=== PATIENT | male | born 1960 | race Caucasian/White ===

== ENCOUNTER 2018-07-17 08:30 | Emergency (ER) | payer BC ==
[~2018-07-17] VITALS: Ht 170.2 cm; Wt 75.0 kg
[~2018-07-17 08:30] MED LIST: ATENOLOL25 MG PO; BENICAR40 MG PO; NORVASC 5MG5 MG/TAB PO
[2018-07-17 08:37] VITALS: BP 148/93; TEMP 98.3
[2018-07-17] MEDS ORDERED: TENORMIN100 MG PO (08:43)
[2018-07-17] MEDS ORDERED: BENICAR HCT 251 TAB PO (08:44)
[2018-07-17] MEDS ORDERED: NORVASC 10MG10 MG PO (08:45)
[2018-07-17] MEDS ORDERED: ASPIRIN 32325 MG/TAB PO (08:45)
[2018-07-17 09:09] LABS: BASO # 0.1 (0.0-0.2); BASO % 0.8 % (0.0-2.0); EOS # 0.1 (0.0-0.7); EOS % 1.1 % (0-4.0); GRAN % 66.2 % (42.2-75.2); HEMATOCRIT 45.2 % (42.0-52.0); LYMPH # 1.5 (1.2-3.4); LYMPH % 20.5 % (20.0-51.0); MEAN CELL VOLUME 90 fl (80.0-100.0); MEAN CORPUSCULAR HEMOGLOBIN 32 pg (27.0-31.0); MEAN CORPUSCULAR HGB CONC 35 g/dl (33.0-37.0); MEAN PLATELET VOLUME 10.3 fl (7.4-10.4); MONO # 0.8 (0.1-0.6); MONO % 11.1 % (1.7-9.3); PLATELET COUNT 216 K/mm3 (130-400); RED BLOOD COUNT 5.02 M/mm3 (4.20-5.60); REDCELL DISTRIBUTION WIDTH-CV 12.3 % (11.5-14.5)
[2018-07-17 09:27] LABS: ALBUMIN 4.1 gm/dL (3.5-5.0); BILIRUBIN,TOTAL 0.7 mg/dL (0.0-1.0); C-REACTIVE PROTEIN 0.9 mg/dL (0.0-0.9); CALCIUM 9.4 mg/dL (8.4-10.2); CREATININE, serum 0.98 mg/dL (0.66-1.25); POTASSIUM 4.2 mmol/L (3.4-5.0); TOTAL PROTEIN 7.6 gm/dL (6.4-8.2); URIC ACID 8.9 mg/dL (3.5-8.5)
[2018-07-17] MEDS ORDERED: PREDNISONE20 MG PO (09:54)
[2018-07-17 10:22] VITALS: PULSE 64
== END 2018-07-17 10:22 | disposition home or self-care (01) ==
LOC: COL.ER 08:30
PROVIDERS: Nurse Practitioner
DX: M10.9 Gout, unspecified (principal); F17.290 Nicotine dependence, other tobacco product, uncomplicated; I10 Essential (primary) hypertension; Z98.890 Other specified postprocedural states

== ENCOUNTER 2020-05-26 07:15 | Emergency (ER) | payer BC ==
[~2020-05-26] VITALS: Ht 165.1 cm; Wt 75.0 kg
[~2020-05-26 07:15] MED LIST changes: +ASPIRIN 32325 MG/TAB PO; +BENICAR HCT 251 TAB PO; +NORVASC 10MG10 MG PO; +PREDNISONE20 MG PO; +TENORMIN100 MG PO
[2020-05-26 07:24] VITALS: TEMP 98.4
[2020-05-26] MEDS ORDERED: DIOVAN320 MG PO (07:28)
[2020-05-26] MEDS ORDERED: FLEXERIL 1010 MG/TAB PO (08:30)
[2020-05-26 08:37] VITALS: BP 161/108; PULSE 92
== END 2020-05-26 08:37 | disposition home or self-care (01) ==
LOC: COL.ER 07:15
DX: S06.0X0A Concussion without loss of consciousness, initial encounter (principal); S00.93XA Contusion of unspecified part of head, initial encounter; I10 Essential (primary) hypertension; F17.220 Nicotine dependence, chewing tobacco, uncomplicated; R40.2410 Glasgow coma scale score 13-15, unspecified time; Z79.82 Long term (current) use of aspirin; W01.198A Fall on same level from slipping, tripping and stumbling with subsequent striking against other object, initial encounter; Y92.830 Public park as the place of occurrence of the external cause

== ENCOUNTER 2020-12-26 08:05 | Emergency (ER) | payer OTHER ==
[~2020-12-26] VITALS: Ht 165.1 cm; Wt 72.7 kg
[~2020-12-26 08:05] MED LIST changes: +DIOVAN320 MG PO; +FLEXERIL 1010 MG/TAB PO
[2020-12-26 08:19] VITALS: TEMP 98.8
[2020-12-26 08:52] LABS: BASO # 0.1 (0.0-0.2); BASO % 1.4 % (0.0-2.0); EOS # 0.1 (0.0-0.7); EOS % 2.3 % (0-4.0); GRAN # 2.6 (1.4-6.5); GRAN % 59.7 % (42.2-75.2); HEMATOCRIT 46.6 % (42.0-52.0); HEMOGLOBIN 15.6 g/dl (13.5-18.0); LYMPH % 22.6 % (20.0-51.0); MEAN CELL VOLUME 92 fl (80.0-100.0); MEAN CORPUSCULAR HEMOGLOBIN 31 pg (27.0-31.0); MEAN CORPUSCULAR HGB CONC 34 g/dl (33.0-37.0); MEAN PLATELET VOLUME 10.6 fl (7.4-10.4); MONO # 0.6 (0.1-0.6); MONO % 13.5 % (1.7-9.3); PLATELET COUNT 195 K/mm3 (130-400); RED BLOOD COUNT 5.05 M/mm3 (4.20-5.60); REDCELL DISTRIBUTION WIDTH-CV 12.5 % (11.5-14.5)
[2020-12-26 08:57] LABS: COLLECTION METHOD CLEAN CATCH
[2020-12-26 09:05] LABS: ALANINE AMINOTRANSFERASE 35 U/L (4-49); ALBUMIN 4.7 gm/dL (3.5-5.0); ALKALINE PHOSPHATASE 77 U/L (50-136); ANION GAP 10 mmol/L (7-16); AST,SGOT 42 U/L (15-37); BILIRUBIN,TOTAL 0.8 mg/dL (0.0-1.0); BLOOD UREA NITROGEN 16 mg/dL (9-20); CALCIUM 9.4 mg/dL (8.4-10.2); CARBON DIOXIDE 25 mmol/L (22-30); CHLORIDE 100 mmol/L (98-107); CREATININE, serum 0.78 (0.66-1.25); GLUCOSE 105 mg/dL (74-106); POTASSIUM 4.5 mmol/L (3.4-5.0); SODIUM 135 mmol/L (137-145); TOTAL PROTEIN 7.9 gm/dL (6.4-8.2)
[2020-12-26 09:09] LABS: C-REACTIVE PROTEIN < 0.5 mg/dL (0.0-0.9)
[2020-12-26 10:12] LABS: URINE APPEARANCE Clear; URINE COLOR Yellow
[2020-12-26 10:13] LABS: MUCOUS Present /lpf; PH 5 (5-8); SQUAMOUS EPITHELIAL 0-2 /hpf; URINE BILIRUBIN Negative (NEGATIVE); URINE BLOOD Negative (NEGATIVE); URINE GLUCOSE Negative (NEGATIVE); URINE KETONE Trace (NEGATIVE); URINE LEUKOCYTE ESTERASE Negative (NEGATIVE); URINE NITRATE Negative (NEGATIVE); URINE PROTEIN(semi-quant) Negative (NEGATIVE); URINE RBC 0-2 /hpf; URINE UROBILINOGEN Negative (NEGATIVE)
[2020-12-26] MEDS ORDERED: NORCO 325 MG-51 TAB PO (10:44)
[2020-12-26 10:58] VITALS: BP 129/74; PULSE 89
== END 2020-12-26 11:05 | disposition home or self-care (01) ==
LOC: COL.ER 08:05
PROVIDERS: Family Medicine
DX: S30.1XXA Contusion of abdominal wall, initial encounter (principal); I10 Essential (primary) hypertension; W06.XXXA Fall from bed, initial encounter
CPT/HCPCS: J2270; J2405; J7120; Q9967

== ENCOUNTER 2024-07-16 08:38 | Emergency (ER) | payer OTHER ==
[~2024-07-16] VITALS: Ht 167.6 cm; Wt 81.8 kg
[~2024-07-16 08:38] MED LIST changes: +NORCO 325 MG-51 TAB PO
[2024-07-16 08:44] VITALS: TEMP 98.7
[2024-07-16] MEDS ORDERED: Morphine 4 MG/ML VIAL IV ONE (09:15)
[2024-07-16] MEDS ORDERED: Ondansetron 4 MG/2 ML VIAL IV ONE (09:15)
[2024-07-16 09:51] LABS: BASO % 0.6 % (0.0-2.0); EOS % 0.2 % (0.0-4.0); GRAN # 5.3 K/mm3 (1.4-6.5); GRAN % 79.2 % (42.2-75.2); HEMATOCRIT 46.4 % (42.0-52.0); LYMPH # 0.7 K/mm3 (1.2-3.4); LYMPH % 10.1 % (20.0-51.0); MEAN CELL VOLUME 96 fl (80.0-100.0); MEAN CORPUSCULAR HEMOGLOBIN 33 pg (27-31); MEAN CORPUSCULAR HGB CONC 35 g/dl (33.0-37.0); MEAN PLATELET VOLUME 10.3 fl (7.4-10.4); MONO # 0.6 K/mm3 (0.1-0.6); MONO % 9.4 % (1.7-9.3); PLATELET COUNT 159 K/mm3 (130-400); RED BLOOD COUNT 4.85 M/mm3 (4.20-5.60); REDCELL DISTRIBUTION WIDTH-CV 12.5 % (11.5-14.5)
[2024-07-16 09:53] LABS: ALBUMIN 3.8 g/dL (3.4-4.8); BILIRUBIN,TOTAL 1.6 mg/dL (0.2-1.2); CALCIUM 9.2 mg/dL (8.4-10.2); CREATININE, serum 0.84 mg/dL (0.72-1.25); POTASSIUM 4.4 mEq/L (3.5-4.5); TOTAL PROTEIN 7.5 g/dl (6.2-8.1)
[2024-07-16] MEDS ORDERED: HYDROmorphone 0.5 MG/0.5 ML SYRINGE IV ONE (10:00)
[2024-07-16] MEDS ORDERED: Iohexol 300 - 100 ML VIAL IV ONE (10:09)
[2024-07-16] MEDS ORDERED: NS 100 ML IV SCH (10:10)
[2024-07-16] MEDS ORDERED: Lidocaine 4% Topical Patch TP ONE (11:00)
[2024-07-16] MEDS ORDERED: NORCO 325 MG-7.1 TAB PO (11:22)
[2024-07-16] MEDS ORDERED: VALIUM 2MG T2 MG/TAB PO (11:22)
[2024-07-16 11:53] VITALS: BP 158/103; PULSE 100
== END 2024-07-16 11:53 | disposition home or self-care (01) ==
LOC: COL.ER 08:38
PROVIDERS: Family Medicine
DX: S22.41XA Multiple fractures of ribs, right side, initial encounter for closed fracture (principal); I10 Essential (primary) hypertension; Z79.899 Other long term (current) drug therapy; W01.190A Fall on same level from slipping, tripping and stumbling with subsequent striking against furniture, initial encounter
CPT/HCPCS: A9284; J1170; J2270; J2405; J3360; Q9967